=== PATIENT | female | born 1950 | race Caucasian/White ===

== ENCOUNTER 2018-07-27 10:36 | Inpatient (IN) ==
[2018-07-27] MEDS ORDERED: SODIUM CHLORIDE 0.9% 500 ML IV STA (12:14)
[2018-07-27] MEDS ORDERED: ONDANSETRON 4 MG/2 ML VIAL IV STA (12:14)
[2018-07-27 13:35] LABS: Basophils % 0.2 % (0.0-0.8); Hemoglobin 10.4 GM/DL (12.0-16.0); Immature Granulocytes % 0.7 %; Immature Granulocytes Absolute 0.08 #; Lymphocytes # 1.1 10*3/uL (1.4-4.0); Lymphocytes % 9.3 % (21.3-54.2); Mean Corpuscular HGB Conc 34.7 GM/DL (32-36); Mean Corpuscular Hemoglobin 30 PG (27-34); Mean Corpuscular Volume 87.7 FL (87-102); Mean Platelet Volume 12.1 FL (9.6-12.0); Monocytes # 0.8 10*3/uL (0.11-0.8); Monocytes % 6.7 % (1.7-12.7); Neutrophils # 9.8 10*3/uL (1.4-7.4); Neutrophils % 83.1 % (38.7-73.9); Platelet Count 209 T/CUMM (130-400); Red Blood Count 3.42 MC/CUMM (3.8-5.5); Red Cell Distribution Width 11.7 % (9.3-17.3); White Blood Count 11.8 T/CUMM (4-12)
[2018-07-27 14:17] LABS: Alanine Aminotransferase 85 U/L (13-56); Albumin 2.7 G/DL (3.4-5.0); Alkaline Phosphatase 138 U/L (45-117); Amylase 51 U/L (25-115); Aspartate Amino Transferase 40 U/L (0-37); Bilirubin,Total < 0.39 MG/DL (0.2-1.0); Blood Urea Nitrogen 12 MG/DL (7-18); Calcium 8.6 MG/DL (8.5-10.1); Glucose 134 MG/DL (74-106); Osmolality,Calculated 258.1 MOS/KG (273-304); Sodium 128 MMOL/L (136-145); Total Protein 6.4 G/DL (6.4-8.3)
[2018-07-27] MEDS ORDERED: ALBUTEROL 2.5 MG/3 ML NEB RESP TX PRN (15:06)
[2018-07-27] MEDS ORDERED: ACETAMINOPHEN 325 MG TABLET PO PRN (15:06)
[2018-07-27] MEDS ORDERED: ONDANSETRON 4 MG/2 ML VIAL IV PRN ×2 (15:06→16:02)
[2018-07-27] MEDS: SODIUM CHLORIDE 0.9% 1,000 ML IV SCH (15:44)
[2018-07-27] MEDS ORDERED: PROMETHAZINE 25 MG TABLET PO PRN (16:02)
[2018-07-27] MEDS ORDERED: PROMETHAZINE 25 MG/1 ML VIAL IM PRN (16:02)
[2018-07-27] MEDS ORDERED: SODIUM CHLORIDE 0.9% 1,000 ML IV PRN (16:07)
[2018-07-27 16:44] LABS: Folate 18.5 NG/ML (5.4-24.0); Vitamin B12 567 PG/ML (211-911)
[2018-07-27] MEDS: PANTOPRAZOLE 40 MG VIAL IV SCH (17:41)
[2018-07-27 18:38] LABS: Basophils % 0.2 % (0.0-0.8); Hematocrit 29.4 VOL% (35.7-47.0); Hemoglobin 9.8 GM/DL (12.0-16.0); Immature Granulocytes % 0.8 %; Lymphocytes # 1.3 10*3/uL (1.4-4.0); Lymphocytes % 9.8 % (21.3-54.2); Mean Corpuscular HGB Conc 33.3 GM/DL (32-36); Mean Corpuscular Hemoglobin 30 PG (27-34); Mean Corpuscular Volume 88.6 FL (87-102); Mean Platelet Volume 12.3 FL (9.6-12.0); Monocytes # 0.7 10*3/uL (0.11-0.8); Monocytes % 5.2 % (1.7-12.7); Neutrophils # 10.9 10*3/uL (1.4-7.4); Platelet Count 207 T/CUMM (130-400); Red Blood Count 3.32 MC/CUMM (3.8-5.5); Red Cell Distribution Width 11.6 % (9.3-17.3)
[2018-07-27 19:51] LABS: Sedimentation Rate-Westergren 97 MM/HR (0-30)
[2018-07-27] MEDS: MECLIZINE 12.5 MG TABLET PO SCH (21:37)
[2018-07-27] MEDS: ASCORBIC ACID 500 MG TABLET PO SCH (21:38)
[2018-07-27] MEDS ORDERED: METOPROLOL SUCCINATE XL 50 MG TABLET PO SCH (22:00)
[2018-07-27] MEDS: BENZONATATE 100 MG CAPSULE PO PRN (22:07)
[2018-07-27 22:53] LABS: Apearance,Urine CLEAR (Clear); Bacteria,Urine Occasional /HPF (Few); Bilirubin,Urine Negative (Negative); Blood, Urine Negative (Negative); Glucose,Urine (UA) Negative (Negative); Hyaline Casts,Urine 8 /LPF (0-3); Ketones,Urine 20 mg/dL (Negative); Mucus,Urine Occasional /LPF (Occasional); Nitrite,Urine Negative (Negative); Protein,Urine Negative; RBC,Urine 1 /HPF (0-4); Squamous Epithelial Cell,Urine Occasional /HPF (0-10); Urine Color Yellow (Yellow); Urine Specific Gravity 1.011 (1.001-1.035); Urine Urobilinogen < 2.0 EU/DL (0.2-1.0); WBC,Urine 3 /HPF (0-6)
[2018-07-28] MEDS: SODIUM CHLORIDE 0.9% 1,000 ML IV SCH ×3 (00:36→20:27)
[2018-07-28 00:47] LABS: Hematocrit 27.9 VOL% (35.7-47.0); Hemoglobin 9.4 GM/DL (12.0-16.0)
[2018-07-28 01:05] LABS: Alanine Aminotransferase 66 U/L (13-56); Albumin 2.5 G/DL (3.4-5.0); Alkaline Phosphatase 115 U/L (45-117); Aspartate Amino Transferase 27 U/L (0-37); Bilirubin,Total < 0.39 MG/DL (0.2-1.0); Blood Urea Nitrogen 13 MG/DL (7-18); Glucose 114 MG/DL (74-106); Osmolality,Calculated 249.6 MOS/KG (273-304); Potassium 4.6 MMOL/L (3.5-5.1); Sodium 124 MMOL/L (136-145); Total Protein 5.8 G/DL (6.4-8.3)
[2018-07-28] MEDS: PANTOPRAZOLE 40 MG VIAL IV SCH ×2 (05:12→15:02)
[2018-07-28 05:51] LABS: Hematocrit 28.1 VOL% (35.7-47.0); Hemoglobin 9.4 GM/DL (12.0-16.0)
[2018-07-28] MEDS: MULTIVITAMIN (OCUVITE) TABLET PO SCH (10:12)
[2018-07-28] MEDS: MECLIZINE 12.5 MG TABLET PO SCH ×3 (10:12→22:03)
[2018-07-28] MEDS: BENZONATATE 100 MG CAPSULE PO PRN ×2 (10:13→22:02)
[2018-07-28] MEDS: ASPIRIN EC 81 MG TABLET PO SCH (10:13)
[2018-07-28] MEDS: CALCIUM (CARBONATE) 600 MG TABLET PO SCH (10:13)
[2018-07-28] MEDS: ASCORBIC ACID 500 MG TABLET PO SCH ×2 (10:13→22:01)
[2018-07-28] MEDS: LOSARTAN 50 MG TABLET PO SCH (10:14)
[2018-07-28] MEDS: POTASSIUM CHLORIDE 10 MEQ TABLET PO SCH (10:14)
[2018-07-28] MEDS: FLECAINIDE 100 MG TABLET PO SCH (22:01)
[2018-07-28] MEDS: METOPROLOL SUCCINATE XL 100 MG TABLET PO SCH (22:02)
[2018-07-28] MEDS ORDERED: diphenhydrAMINE CAP 25 MG CAPSULE PO PRN (23:25)
[2018-07-29 05:30] LABS: Basophils % 0.2 % (0.0-0.8); Eosinophils # 0.1 10*3/uL (0.0-0.87); Eosinophils % 1.2 % (0.00-10.9); Hematocrit 28.8 VOL% (35.7-47.0); Hemoglobin 9.5 GM/DL (12.0-16.0); Immature Granulocytes % 1.5 %; Immature Granulocytes Absolute 0.12 #; Lymphocytes # 1.8 10*3/uL (1.4-4.0); Lymphocytes % 21.5 % (21.3-54.2); Mean Corpuscular Hemoglobin 30 PG (27-34); Mean Corpuscular Volume 89.4 FL (87-102); Mean Platelet Volume 11.1 FL (9.6-12.0); Monocytes # 0.8 10*3/uL (0.11-0.8); Neutrophils # 5.4 10*3/uL (1.4-7.4); Neutrophils % 65.6 % (38.7-73.9); Platelet Count 236 T/CUMM (130-400); Red Blood Count 3.22 MC/CUMM (3.8-5.5); Red Cell Distribution Width 11.8 % (9.3-17.3); White Blood Count 8.2 T/CUMM (4-12)
[2018-07-29] MEDS: PANTOPRAZOLE 40 MG VIAL IV SCH ×2 (06:01→16:33)
[2018-07-29 08:49] LABS: Calcium 7.7 MG/DL (8.5-10.1); Osmolality,Calculated 269.8 MOS/KG (273-304)
[2018-07-29] MEDS: MULTIVITAMIN (OCUVITE) TABLET PO SCH (09:05)
[2018-07-29] MEDS: FLECAINIDE 100 MG TABLET PO SCH ×2 (09:05→21:21)
[2018-07-29] MEDS: POTASSIUM CHLORIDE 10 MEQ TABLET PO SCH (09:06)
[2018-07-29] MEDS: ASCORBIC ACID 500 MG TABLET PO SCH ×2 (09:06→21:21)
[2018-07-29] MEDS: BENZONATATE 100 MG CAPSULE PO PRN ×2 (09:06→21:21)
[2018-07-29] MEDS: LOSARTAN 50 MG TABLET PO SCH (09:06)
[2018-07-29] MEDS: CALCIUM (CARBONATE) 600 MG TABLET PO SCH (09:06)
[2018-07-29] MEDS: ASPIRIN EC 81 MG TABLET PO SCH (09:07)
[2018-07-29] MEDS: MECLIZINE 12.5 MG TABLET PO SCH ×3 (09:07→21:21)
[2018-07-29] MEDS: SODIUM CHLORIDE 0.9% 1,000 ML IV SCH ×2 (11:00→21:19)
[2018-07-29] MEDS: METOPROLOL SUCCINATE XL 100 MG TABLET PO SCH (21:21)
[2018-07-30 06:23] LABS: Basophils % 0.5 % (0.0-0.8); Eosinophils # 0.3 10*3/uL (0.0-0.87); Eosinophils % 3.5 % (0.00-10.9); Hematocrit 28.5 VOL% (35.7-47.0); Hemoglobin 9.5 GM/DL (12.0-16.0); Immature Granulocytes % 2.6 %; Lymphocytes # 2.3 10*3/uL (1.4-4.0); Lymphocytes % 30.3 % (21.3-54.2); Mean Corpuscular HGB Conc 33.3 GM/DL (32-36); Mean Corpuscular Hemoglobin 30 PG (27-34); Mean Corpuscular Volume 89.9 FL (87-102); Mean Platelet Volume 11.7 FL (9.6-12.0); Monocytes # 0.6 10*3/uL (0.11-0.8); Monocytes % 7.7 % (1.7-12.7); Neutrophils # 4.3 10*3/uL (1.4-7.4); Neutrophils % 55.4 % (38.7-73.9); Platelet Count 220 T/CUMM (130-400); Red Blood Count 3.17 MC/CUMM (3.8-5.5); Red Cell Distribution Width 11.9 % (9.3-17.3); White Blood Count 7.7 T/CUMM (4-12)
[2018-07-30] MEDS: SODIUM CHLORIDE 0.9% 1,000 ML IV SCH (06:36)
[2018-07-30] MEDS: PANTOPRAZOLE 40 MG VIAL IV SCH ×2 (06:37→17:05)
[2018-07-30 06:53] LABS: Osmolality,Calculated 268.8 MOS/KG (273-304); Potassium 3.6 MMOL/L (3.5-5.1)
[2018-07-30 09:58] LABS: Hemoglobin A1 (Alkaline) 97.2 % (96.5-98.5); Hemoglobin A2 (Alkaline) 2.8 % (1.5-3.5)
[2018-07-30] MEDS: ASCORBIC ACID 500 MG TABLET PO SCH (13:19)
[2018-07-30] MEDS: CALCIUM (CARBONATE) 600 MG TABLET PO SCH (13:19)
[2018-07-30] MEDS: MULTIVITAMIN (OCUVITE) TABLET PO SCH (13:19)
[2018-07-30] MEDS: POTASSIUM CHLORIDE 10 MEQ TABLET PO SCH (13:19)
[2018-07-30] MEDS: LOSARTAN 50 MG TABLET PO SCH (13:20)
[2018-07-30] MEDS: MECLIZINE 12.5 MG TABLET PO SCH ×2 (13:20→17:04)
[2018-07-30] MEDS: ASPIRIN EC 81 MG TABLET PO SCH (13:20)
[2018-07-30] MEDS: FLECAINIDE 100 MG TABLET PO SCH (13:20)
[2018-07-30 17:45] VITALS: BP 126/68
== END 2018-07-30 19:34 | disposition home or self-care (01) | DRG 378 ==
LOC: N.ED 10:36 → N.EDINP 15:06 → SUATTDRO 15:06 → N.CC 15:50 → N.TELEN 16:32
PROVIDERS: ADMIT Internal Medicine; ATTEND Hospitalist

== ENCOUNTER 2021-04-08 06:06 | Day surgery (SDC) ==
[~2021-04-08 06:06] MED LIST: DIAZEPAM 5 MG TABLET PO ONE; ceFAZolin 1,000 MG VIAL IRRIG ONE
[2021-04-08 06:49] LABS: Basophils % 0.6 % (0.0-0.8); Eosinophils # 0.1 10*3/uL (0.0-0.87); Eosinophils % 2.6 % (0.00-10.9); Hematocrit 33.8 VOL% (35.7-47.0); Hemoglobin 11.5 GM/DL (12.0-16.0); Immature Granulocytes % 0.2 %; Immature Granulocytes Absolute 0.01 #; Lymphocytes % 40.2 % (21.3-54.2); Mean Corpuscular Volume 91.1 FL (87-102); Mean Platelet Volume 12.1 FL (9.6-12.0); Neutrophils % 48.4 % (38.7-73.9); Platelet Count 106 T/CUMM (130-400); Red Blood Count 3.71 MC/CUMM (3.8-5.5); Red Cell Distribution Width 12.2 % (9.3-17.3)
[2021-04-08] MEDS ORDERED: DIAZEPAM 5 MG TABLET ONE (06:52)
[2021-04-08] MEDS: DEXTROSE 5% NACL 0.45% 1,000 ML IV SCH (06:56)
[2021-04-08 06:58] LABS: INR 1.1; PT Patient Result 11.7 SECS (10.5-12.0)
[2021-04-08 07:23] LABS: Albumin 3.8 G/DL (3.4-5.0); Bilirubin,Total 0.4 MG/DL (0.20-1.00); Calcium 8.5 MG/DL (8.5-10.1); Osmolality,Calculated 279.5 MOS/KG (273-304); Potassium 4.2 MMOL/L (3.5-5.1); Total Protein 6.9 G/DL (6.4-8.2)
[2021-04-08] MEDS ORDERED: MIDAZOLAM 2 MG/2 ML VIAL ONE (08:28)
[2021-04-08] MEDS ORDERED: LIDOCAINE 1%/EPI INJ 20 ML VIAL ONE (08:28)
[2021-04-08] MEDS ORDERED: ceFAZolin 1,000 MG VIAL ONE ×2 (08:28)
[2021-04-08] MEDS ORDERED: fentaNYL 100 MCG/2 ML VIAL ONE (08:29)
[2021-04-08] MEDS ORDERED: HEPARIN/NACL 0.9% 2 UNITS/ML 1,000 UNIT/500 ML BAG IV ONE (09:26)
[2021-04-08] MEDS ORDERED: ACETAMINOPHEN 500 MG TABLET PO PRN (10:30)
[2021-04-08] MEDS ORDERED: FUROSEMIDE 40 MG TABLET PO PRN (10:30)
[2021-04-08] MEDS ORDERED: ONDANSETRON 4 MG/2 ML VIAL IV PRN (10:31)
[2021-04-08] MEDS ORDERED: IBUPROFEN 400 MG TABLET PO PRN (10:31)
[2021-04-08] MEDS ORDERED: ZALEPLON 5 MG CAPSULE PO PRN (10:31)
[2021-04-08] MEDS ORDERED: ALUMINUM/MAGNES/SIMETH MAX STR 30 ML UDCUP PO PRN (10:31)
[2021-04-08] MEDS ORDERED: ACETAMINOPHEN/CODEINE 300-30 MG TABLET PO PRN (10:31)
[2021-04-08] MEDS: ASCORBIC ACID 500 MG TABLET PO SCH (20:25)
[2021-04-08] MEDS: FLECAINIDE 50 MG TABLET PO SCH (20:25)
[2021-04-09] MEDS: DEXTROSE 5% NACL 0.45% 1,000 ML IV SCH (08:58)
[2021-04-09] MEDS: FLECAINIDE 50 MG TABLET PO SCH (08:58)
[2021-04-09] MEDS: ASCORBIC ACID 500 MG TABLET PO SCH (08:59)
[2021-04-09] MEDS ORDERED: POTASSIUM CHLORIDE 10 MEQ TABLET PO SCH (09:00)
[2021-04-09] MEDS ORDERED: ASPIRIN EC 81 MG TABLET PO SCH (09:00)
[2021-04-09] MEDS ORDERED: CALTRATE PO SCH (09:00)
[2021-04-09] MEDS ORDERED: METOPROLOL SUCCINATE XL 25 MG TABLET PO SCH (09:00)
[2021-04-09] MEDS ORDERED: MINERALS PO SCH (09:00)
[2021-04-09] MEDS ORDERED: CALCIUM (CARBONATE) 500 MG TABLET PO SCH (09:00)
[2021-04-09] MEDS ORDERED: PRESERVISION AREDS PO SCH (09:00)
[2021-04-09] MEDS ORDERED: LOSARTAN 25 MG TABLET PO SCH (09:00)
[2021-04-09] MEDS ORDERED: MULTIVITAMIN (OCUVITE) TABLET PO SCH (09:00)
[2021-04-09] MEDS ORDERED: [UNRECOGNIZED DRUG - OTHER] PO SCH (09:00)
[2021-04-09] MEDS ORDERED: CHOLECALCIFEROL 5,000 UNIT TABLET PO SCH (09:00)
[2021-04-09 09:56] VITALS: BP 136/56
== END 2021-04-09 12:45 | disposition home or self-care (01) ==
LOC: N.CL 06:06 → N.TELEN 10:05 → N.CL 04-09 12:45
PROVIDERS: ATTEND Internal Medicine Interventional Cardiology